=== PATIENT | female | born 1975 | race Hispanic/Latino ===

== ENCOUNTER 2020-10-04 10:05 | Emergency (ER) | payer OTHER, BC ==
[~2020-10-04] VITALS: Ht 167.6 cm; Wt 79.8 kg
[2020-10-04] MEDS ORDERED: KETOROLAC TROMETHAMINE 30 MG/ML VIAL IV STA (12:08)
[2020-10-04] MEDS ORDERED: SODIUM CHLORIDE 0.9% 1000ML 1,000 ML IV SCH (12:15)
[2020-10-04] MEDS ORDERED: KETOROLAC TROMETHAMINE 30 MG/ML VIAL ONE (12:59)
[2020-10-04] MEDS ORDERED: SODIUM CHLORIDE 0.9% 1000ML 1,000 ML ONE (12:59)
[2020-10-04] MEDS ORDERED: BAMLANIVIMAB 700 MG in SODIUM CHLORIDE 0.9% 250ML 250 ML IV ONE (13:00)
[2020-10-04 15:47] VITALS: BP 110/68
== END 2020-10-04 15:47 | disposition home or self-care (01) ==
LOC: FSED 12:10
DX: U07.1 COVID-19 (principal); E86.0 Dehydration; E86.1 Hypovolemia; R51.9 Headache, unspecified; B20 Human immunodeficiency virus [HIV] disease
CPT/HCPCS: 96374; 99284; J1885; J7030; J7050